=== PATIENT | female | born 1930 | race Caucasian/White ===

== ENCOUNTER 2021-08-22 09:55 | Outpatient (CLI) | payer MEDICARE | END 2021-08-22 09:56 | disposition home or self-care (01) | LOC: TBSIIMAG 09:55 | PROVIDERS: ATTEND Neurological Surgery | DX: M50.00 Cervical disc disorder with myelopathy, unspecified cervical region (principal); M47.812 Spondylosis without myelopathy or radiculopathy, cervical region; M48.02 Spinal stenosis, cervical region; M50.021 Cervical disc disorder at C4-C5 level with myelopathy | CPT/HCPCS: 72050; 72141 ==